=== PATIENT | male | born 1990 | race African-American/Black ===

== ENCOUNTER 2017-10-30 15:53 | Emergency (ER) | payer SELFPAY ==
[2017-10-30 15:54] VITALS: BP 153/71; PULSE 96; RESP 16; TEMP 36.9; O2SAT 99; BMI 30.1
--- NOTE | 2017-10-30 16:06 | ED.VISSUMM ---
- ER Visit Summary Date of Service: 10/30/17 Chief Complaint: [] Vomiting and diarrhea for a few days History of Present Illness: The patient is a 27 M [] patient reports vomiting and diarrhea for the last 2 days, his symptoms are actually improved to where he is able to take juice type liquids without difficulty the diarrhea is also improved he has had no fever no exposures no antibiotics, he denies a past history report he occasionally experience his abdominal pain for nonspecific reasons Physical Examination: [] He is in no distress his vital signs are normal head neck chest unremarkable the abdomen is completely nontender to deep aggressive palpation he has no pain again he does report is feeling better his upper lower extremity skin exam normal HEENT exam normal clinically he looks well states he feels well Test Results: [] Emergency Department Course and Treatment: [] Did review prior records had prior negative ultrasound about 1 year ago clinically looks well he feels well he is eating and drinking his diarrhea has actually slowed down without specific therapy at this time he will be given Zofran in the department and liquids which she had no trouble taking continue Zofran at home force fluids and to follow-up with his physicians and return for change in symptoms Treatment Plan: [] Disposition: [] Home stable Impression: [] Vomiting diarrhea improved This note was generated with [employer] dictation software. It may contain incorrect words, spelling, and punctuation that were not noted in review of the chart prior to signing ED Disposition - Plan for ED Patient: Chief Complaint: Nausea/Vomiting Referrals: Care Physician,No Primary [Primary Care Provider] -
--- NOTE | 2017-10-30 16:10 | ED.DEP ---
ED Disposition - Plan for ED Patient: Chief Complaint: Nausea/Vomiting Instructions: ED Nausea Vomiting Prescriptions: Ondansetron [Zofran Odt] 4 mg PO Q8H PRN PRN #10 tab PRN Reason: Nausea Referrals: Care Physician,No Primary [Primary Care Provider] -
[2017-10-30] MEDS: Ondansetron ODT 4 MG Tablet PO (16:23)
[2017-10-30 16:35] VITALS: BP 153/71; PULSE 96
== END 2017-10-30 16:37 | disposition home or self-care (01) ==
PROVIDERS: Emergency Provider Emergency Medicine
DX: R19.7 Diarrhea, unspecified (principal); R11.2 Nausea with vomiting, unspecified
CPT/HCPCS: 99283

== ENCOUNTER 2017-12-09 19:40 | Emergency (ER) | payer SELFPAY ==
[2017-12-09 19:40] VITALS: BP 160/95; PULSE 103; RESP 18; TEMP 37.3; O2SAT 98; BMI 29.2
[2017-12-09 20:16] LABS: Bacteria 0 SEEN /hpf (None Seen); Mucous, Urine 0 SEEN /hpf (<or=2+); Red Blood Cells-Urine 0 SEEN /hpf (0-5); Squamous Epithelial Cells - UA 0 SEEN /hpf (0-5); White Blood Cells 0 SEEN /hpf (0-5)
[2017-12-09 20:33] LABS: Absolute Lymphocyte Count 2.21 X10^3/ul (0.83-4.51); Absolute Neutrophil Count 5.1 X10^3/uL (2.0-7.7); Basophil# 0.04 X10^3/uL; Basophil% 0.5 % (0-1); Eosinophils% 3.7 % (0-5); Hematocrit 44.5 % (40-54); Lymphocyte # 2.21 X10^3/ul (4.0); Lymphocyte % 27.3 % (19-41); Mean Corp Hgb Conc 33.7 g/gl (32-36); Mean Corpuscular Hgb 31.1 pg (27.0-32.0); Mean Corpuscular Volume 92.3 fL (80-94); Mean Platelet Vol. 9.9 fl (6.2-12.0); Monocyte# 0.42 X10^3/uL; Monocyte% 5.2 % (0-10); Neutrophil # 5.12 X10^3/uL (2.7-7.7); Neutrophil % 63.2 % (47-70); Platelet Count 320 K/mm3 (150-450); RBC Distribution Width SD 47.2 fl (35.1-43.9); Red Blood Count 4.82 M/mm3 (4.6-6.2); White Blood Count 8.1 K/mm3 (4.4-11.0)
[2017-12-09 20:34] LABS: POSITIVE COUNT NO; POSITIVE DIFFERENTIAL NO; POSITIVE MORPHOLOGY NO
[2017-12-09 20:40] LABS: Anion Gap 7 (5-15); BUN 11 mg/dL (7-18); BUN/Creat Ratio 9.6 RATIO (10-20); Calcium,Total 8.9 mg/dL (8.5-10.1); Chloride 108 mmol/L (98-107); Creatinine, Serum 1.15 mg/dL (0.70-1.30); EST Glomerular Filtration Rate 82 mL/min (>60); Est Glom Filt Rate - Afr Amer 99 mL/min (>60); Estimated Creatinine Clearance 100.51 ml/min; Glucose 103 mg/dL (74-106); Potassium 3.3 mmol/L (3.5-5.1); Sodium Level 142 mmol/L (136-145)
[2017-12-09 20:45] LABS: Color, Urine Yellow (Yellow); Glucose, Dipstick Normal (Normal); Ketone-Dipstick Negative (Negative); Leukocyte Esterase-Dipstick Negative /ul (Negative); Nitrite-Dipstick Negative (Negative); Occult Blood-Urine Negative /ul (Negative); Protein-Dipstick 15 mg/dl (Negative); Urine Bilirubin Dipstick Negative (Negative); Urine Clarity Clear (Clear); Urine Urobilinogen Normal (Normal); Urine pH 6.5 (5.0 - 8.0)
[2017-12-09 21:43] VITALS: BP 148/91; PULSE 86; RESP 16; O2SAT 99
--- NOTE | 2017-12-09 21:49 | ED.VISSUMM ---
- ER Visit Summary Date of Service: 12/09/17 Chief Complaint: [Abdominal pain] History of Present Illness: The patient is a 27 M [presents the emergency department with complaint of abdominal pain that started this morning when he first woke up. Patient states that around 11:30 AM he started to have emesis and threw up about 4 times. He last vomited around 6 PM. On my evaluation of the patient at 2145 his abdominal pain is resolved. Patient states that after he started vomiting he noticed that his lips were swollen and he was starting to develop what he describes as cold sores. Patient has had cold sores in the past and states that his lips are very sensitive to weather changes. Patient denies any fevers. He denies any diarrhea. He denies any sick contacts.] Physical Examination: [HEENT-PERRLA, EOMI. Cranial nerves II through XII grossly intact. TMs clear. Mucous membranes moist. No adenopathy. Lips-patient does have vesicular type lesions to the right upper right lower and left upper lips consistent with herpetic-like infection. Cardiovascular-regular rate and rhythm without murmur or ectopy Lungs-clear to auscultation, chest wall stable without crepitus or subcu emphysema Abdomen-normoactive bowel sounds, soft, nontender, no rebound or rigidity, no peritoneal signs. Extremities-intact ?4, normal range of motion, normal pulses, atraumatic] Test Results: [CBC with differential was ordered from triage that showed a white blood cell count of 8.1, hemoglobin 15, hematocrit 44, platelets 320. Chemistry showed a potassium of 3.3. Urinalysis was normal.] Emergency Department Course and Treatment: [At this point patient's pain is resolved and his abdominal exam is benign. I do not feel any imaging is indicated. Patient is in agreement with this. I did start patient on acyclovir for suspected herpes simplex infection. Treatment Plan: [Will be given a prescription for Zofran and Famvir] Disposition: [Discharged home in stable condition] Impression: [Abdominal pain-resolved Herpes simplex infection of lips ] This note was generated with [employer] dictation software. It may contain incorrect words, spelling, and punctuation that were not noted in review of the chart prior to signing ED Disposition - Plan for ED Patient: Chief Complaint: Abd Pain Referrals: Care Physician,No Primary [Primary Care Provider] -
--- NOTE | 2017-12-09 21:52 | ED.DCSUM_ITS ---
- ER Visit Summary Date of Service: 12/09/17 Chief Complaint: [Abdominal pain] History of Present Illness: The patient is a 27 M [presents the emergency department with complaint of abdominal pain that started this morning when he first woke up. Patient states that around 11:30 AM he started to have emesis and threw up about 4 times. He last vomited around 6 PM. On my evaluation of the patient at 2145 his abdominal pain is resolved. Patient states that after he started vomiting he noticed that his lips were swollen and he was starting to develop what he describes as cold sores. Patient has had cold sores in the past and states that his lips are very sensitive to weather changes. Patient denies any fevers. He denies any diarrhea. He denies any sick contacts.] Physical Examination: [HEENT-PERRLA, EOMI. Cranial nerves II through XII grossly intact. TMs clear. Mucous membranes moist. No adenopathy. Lips- patient does have vesicular type lesions to the right upper right lower and left upper lips consistent with herpetic-like infection. Cardiovascular-regular rate and rhythm without murmur or ectopy Lungs-clear to auscultation, chest wall stable without crepitus or subcu emphysema Abdomen-normoactive bowel sounds, soft, nontender, no rebound or rigidity, no peritoneal signs. Extremities-intact ?4, normal range of motion, normal pulses, atraumatic] Test Results: [CBC with differential was ordered from triage that showed a white blood cell count of 8.1, hemoglobin 15, hematocrit 44, platelets 320. Chemistry showed a potassium of 3.3. Urinalysis was normal.] Emergency Department Course and Treatment: [At this point patient's pain is resolved and his abdominal exam is benign. I do not feel any imaging is indicated. Patient is in agreement with this. I did start patient on acyclovir for suspected herpes simplex infection. Treatment Plan: [Will be given a prescription for Zofran and Famvir] Disposition: [Discharged home in stable condition] Impression: [Abdominal pain-resolved Herpes simplex infection of lips ] This note was generated with [employer] dictation software. It may contain incorrect words, spelling, and punctuation that were not noted in review of the chart prior to signing ED Disposition - Plan for ED Patient: Chief Complaint: Abd Pain Referrals: Care Physician,No Primary [Primary Care Provider] -
--- NOTE | 2017-12-09 21:53 | ED.DEP ---
ED Disposition - Plan for ED Patient: Chief Complaint: Abd Pain Instructions: ED Abdominal Pain Unkn Cause, ED Herpes Simplex Virus Type 2, Herpes: Caring for Sores Prescriptions: Ondansetron [Zofran Odt] 4 mg PO Q8H PRN PRN #10 tab PRN Reason: Nausea Famciclovir [Famvir] 500 mg PO TID #21 tab Referrals: Care Physician,No Primary [Primary Care Provider] - Rich Jacobs MD [STAFF PHYSICIAN] - 3-5 Days
[2017-12-09] MEDS: Acyclovir 800 MG Tablet PO (22:13)
== END 2017-12-09 22:17 | disposition home or self-care (01) ==
PROVIDERS: Emergency Provider Emergency Medicine
DX: B00.1 Herpesviral vesicular dermatitis (principal); R10.9 Unspecified abdominal pain; Z72.0 Tobacco use
CPT/HCPCS: 80048; 81001; 85025; 99284